=== PATIENT | male | born 1990 | race African-American/Black ===

== ENCOUNTER 2017-06-30 18:48 | Emergency (ER) | payer SELFPAY ==
--- NOTE | 2017-06-30 23:29 | ULT ---
EXAM: TESTICULAR ULTRASOUND 06/30/17 HISTORY: Right testicular pain. COMPARISON: None. TECHNIQUE: Garcia scale, color flow, doppler imaging with spectral waveform analysis is performed of the left and right testicle. FINDINGS: RIGHT HEMISCROTUM: The right testicle has a homogeneous echotexture. No intratesticular mass. Right testicle measures 2 .1 x 3.6 x 1.8 cm. Right epididymis is not appreciated. No fluid in the right hemiscrotum. LEFT HEMISCROTUM: Left testicle has a homogeneous echotexture. No intratesticular mass. Left testicle measures 1.6 x 3 .4 x 1.6 cm. Left epididymis is poorly defined. There is no significant fluid in the left hemiscrotu m. There are tubular structures with increased vascular flow upon Valsalva due to varicoceles. TESTICULAR DOPPLER: There is symmetric flow to the left and right testicle. IMPRESSION: 1. Nonvisualization of either epididymis. 2. Symmetric echogenicity and vascular flow to the testicles. 3. Left sided varicoceles. POS: [facility]
== END 2017-06-30 21:50 | disposition home or self-care (01) ==
LOC: ERS 18:48
DX: K42.9 Umbilical hernia without obstruction or gangrene (principal); F17.210 Nicotine dependence, cigarettes, uncomplicated
CPT/HCPCS: 76870; 93976

== ENCOUNTER 2017-11-28 17:55 | Emergency (ER) | payer SELFPAY, OTHER ==
[2017-11-28 18:40] LABS: #Basophils 0.1 thou/uL (0.0-0.2); #Monocytes 0.6 thou/uL (0.11-0.59); #Neutrophils 4.9 thou/uL (1.40-6.50); %Basophils 0.7 % (0.0-1.0); %Eosinophils 0.6 % (0.0-10.0); %Lymphocytes 26.7 % (21.0-51.0); %Monocytes 7.5 % (0.0-10.0); %Neutrophils 64.5 % (42.0-75.0); Hemoglobin 15.4 g/dL (14.0-18.0); Mean Corpuscular HGB CONC 34.2 g/dL (32.0-36.0); Mean Corpuscular Hemoglobin 31.7 pg (27.0-31.0); Mean Corpuscular Volume 92.6 fl (80.0-94.0); Mean Platelet Volume 7.1 fL (7.4-10.4); Platelet Count 264 thou/uL (130-400); RBC Distribution Width 11.8 % (11.5-14.5); Red Blood Cell (RBC) Count 4.86 mill/uL (4.70-6.10); White Blood Cell (WBC) Count 7.6 thou/uL (4.8-10.8)
[2017-11-28 18:44] LABS: Bilirubin Negative (Negative); Blood, Urine Negative (Negative); Clarity CLEAR (Clear); Glucose, Urine (Dipstick) Negative (Negative); Leukocyte Negative (Negative); Nitrite Negative (Negative); Protein, Urine (Dipstick) Negative (Neg-Trace); Specific Gravity, Urine 1.022 (1.002-1.036)
[2017-11-28 18:55] LABS: ALT (SGPT) 14 U/L (8-55); AST (SGOT) 18 U/L (5-34); Albumin 4.6 g/dL (3.5-5.0); Alkaline Phosphatase 67 U/L (40-150); Anion Gap 11 mmol/L (10-20); BUN (Urea Nitrogen) 10 mg/dL (8.9-20.6); Bilirubin, Total 0.4 mg/dL (0.2-1.2); Calc. Creatinine Clearance 0 mL/min (70-130); Calcium 9.4 mg/dL (7.8-10.44); Carbon Dioxide 26 mmol/L (22-29); Chloride 104 mmol/L (98-107); Estimated GFR-MDRD Greater than 90; Globulin 2.7 g/dL (2.4-3.5); Glucose 116 mg/dL (70-105); Lipase 27 U/L (8-78); Potassium 3.7 mmol/L (3.5-5.1); Protein, Total 7.3 g/dL (6.0-8.3); Sodium 137 mmol/L (136-145)
== END 2017-11-28 20:16 | disposition home or self-care (01) ==
LOC: ERS 17:55
DX: B36.0 Pityriasis versicolor (principal); F17.210 Nicotine dependence, cigarettes, uncomplicated
CPT/HCPCS: 36415; 80053; 81003; 83690; 85025; 99284

== ENCOUNTER 2018-03-13 20:53 | Emergency (ER) | payer SELFPAY | END 2018-03-13 22:39 | disposition home or self-care (01) | LOC: ERS 20:53 | DX: T67.5XXA Heat exhaustion, unspecified, initial encounter (principal); J45.909 Unspecified asthma, uncomplicated; F17.210 Nicotine dependence, cigarettes, uncomplicated; F12.10 Cannabis abuse, uncomplicated; X30.XXXA Exposure to excessive natural heat, initial encounter | CPT/HCPCS: 99284 ==

== ENCOUNTER 2018-05-22 21:04 | Emergency (ER) | payer SELFPAY ==
[2018-05-22 21:53] LABS: #Basophils 0.1 thou/uL (0.0-0.2); #Eosinphils 0.2 thou/uL (0.0-0.7); #Lymphocytes 3.3 thou/uL (1.20-3.40); #Monocytes 0.7 thou/uL (0.11-0.59); #Neutrophils 2.6 thou/uL (1.40-6.50); %Basophils 1.1 % (0.0-1.0); %Eosinophils 2.6 % (0.0-10.0); %Lymphocytes 48.5 % (21.0-51.0); %Monocytes 9.7 % (0.0-10.0); %Neutrophils 38.1 % (42.0-75.0); Hemoglobin 14.9 g/dL (14.0-18.0); Mean Corpuscular HGB CONC 34.5 g/dL (32.0-36.0); Mean Corpuscular Hemoglobin 32.2 pg (27.0-31.0); Mean Corpuscular Volume 93.4 fL (78.0-98.0); Mean Platelet Volume 6.8 fL (7.4-10.4); Platelet Count 240 thou/uL (130-400); RBC Distribution Width 11.8 % (11.5-14.5); Red Blood Cell (RBC) Count 4.64 mill/uL (4.70-6.10); White Blood Cell (WBC) Count 6.8 thou/uL (4.8-10.8)
[2018-05-22 22:17] LABS: ALT (SGPT) 19 U/L (8-55); AST (SGOT) 18 U/L (5-34); Albumin 3.7 g/dL (3.5-5.0); Alkaline Phosphatase 59 U/L (40-150); Anion Gap 11 mmol/L (10-20); BUN (Urea Nitrogen) 8 mg/dL (8.9-20.6); Bilirubin, Total 0.5 mg/dL (0.2-1.2); Calc. Creatinine Clearance 0 mL/min (70-130); Calcium 8.7 mg/dL (7.8-10.44); Carbon Dioxide 28 mmol/L (22-29); Chloride 106 mmol/L (98-107); Estimated GFR-MDRD Greater than 90; Globulin 2.1 g/dL (2.4-3.5); Glucose 92 mg/dL (70-105); Protein, Total 5.8 g/dL (6.0-8.3); Sodium 141 mmol/L (136-145)
[2018-05-22 22:18] LABS: Acetaminophen Less than 6.0 mcg/mL (10.0-30.0); Alcohol Less than 10 mg/dL (Less than 10); CK (CPK) 117 U/L (30-200); Salicylate Less than 8.0 mg/dL (15.0-30.0)
== END 2018-05-22 22:29 | disposition left against medical advice (07) ==
LOC: ERS 21:04
DX: R41.82 Altered mental status, unspecified (principal); F17.210 Nicotine dependence, cigarettes, uncomplicated
CPT/HCPCS: 36415; 80053; 80307; 82140; 82550; 85025; 94760

== ENCOUNTER 2018-06-17 00:44 | Emergency (ER) | payer SELFPAY | END 2018-06-17 01:30 | disposition home or self-care (01) | LOC: ERS 00:44 | DX: K02.9 Dental caries, unspecified (principal); F17.210 Nicotine dependence, cigarettes, uncomplicated; Z71.6 Tobacco abuse counseling | CPT/HCPCS: 99406 ==

== ENCOUNTER 2018-06-28 15:04 | Emergency (ER) | payer SELFPAY | END 2018-06-28 15:56 | disposition home or self-care (01) | LOC: ERS 15:04 | DX: K02.9 Dental caries, unspecified (principal); F17.210 Nicotine dependence, cigarettes, uncomplicated | CPT/HCPCS: 99282 ==

== ENCOUNTER 2020-08-04 14:25 | Emergency (ER) | payer SELFPAY | END 2020-08-04 15:12 | disposition home or self-care (01) | LOC: ERS 14:25 | DX: R09.89 Other specified symptoms and signs involving the circulatory and respiratory systems (principal); Z20.828 Contact with and (suspected) exposure to other viral communicable diseases; F17.210 Nicotine dependence, cigarettes, uncomplicated | CPT/HCPCS: 99283 ==

== ENCOUNTER 2020-11-20 08:42 | Emergency (ER) | payer SELFPAY | END 2020-11-20 09:31 | disposition home or self-care (01) | LOC: ERS 08:42 | DX: K04.7 Periapical abscess without sinus (principal); J45.909 Unspecified asthma, uncomplicated; F17.210 Nicotine dependence, cigarettes, uncomplicated | CPT/HCPCS: 99282 ==

== ENCOUNTER 2020-12-21 09:47 | Emergency (ER) | payer SELFPAY | END 2020-12-21 11:24 | disposition home or self-care (01) | LOC: ERS 09:47 | DX: K64.4 Residual hemorrhoidal skin tags (principal); F17.210 Nicotine dependence, cigarettes, uncomplicated | CPT/HCPCS: 99282 ==

== ENCOUNTER 2021-01-01 19:34 | Emergency (ER) | payer SELFPAY | END 2021-01-01 20:29 | disposition home or self-care (01) | LOC: ERS 19:34 | DX: R19.7 Diarrhea, unspecified (principal); F17.210 Nicotine dependence, cigarettes, uncomplicated | CPT/HCPCS: 99283 ==

== ENCOUNTER 2021-01-19 11:43 | Emergency (ER) | payer SELFPAY | END 2021-01-19 14:37 | disposition home or self-care (01) | LOC: ERS 11:43 | DX: A60.00 Herpesviral infection of urogenital system, unspecified (principal); J45.909 Unspecified asthma, uncomplicated; F17.210 Nicotine dependence, cigarettes, uncomplicated | CPT/HCPCS: 99282 ==

== ENCOUNTER 2021-09-20 17:09 | Emergency (ER) | payer SELFPAY ==
[2021-09-20 19:40] LABS: Bilirubin Negative (Negative); Blood, Urine Negative (Negative); Clarity Clear (Clear); Glucose, Urine (Dipstick) Normal (Negative); Ketone, Urine Negative (Negative); Leukocyte Negative Leu/uL (Negative); Nitrite Negative (Negative); Protein, Urine (Dipstick) Negative (Neg-Trace); Specific Gravity, Urine 1.023 (1.002-1.036); Urobilinogen Normal mg/dL (Less than 2)
[2021-09-20] MEDS ORDERED: Bicillin LA 2.4 MILL.UNITS/4 ML SYRINGE ONE (20:32)
[2021-09-21 11:25] LABS: Syphilis Antibody Nonreactive (Nonreactive); Syphilis Antibody Index 0.11 S/CO (<1.00 Non-Reactive)
[2021-09-21 21:42] LABS: Chlam.trachomatis by PCR,Urine DETECTED (NotDetected)
== END 2021-09-20 20:55 | disposition home or self-care (01) ==
LOC: ERS 17:09
DX: N48.89 Other specified disorders of penis (principal); F17.210 Nicotine dependence, cigarettes, uncomplicated; J45.909 Unspecified asthma, uncomplicated
CPT/HCPCS: 36416; 81003; 86780; 87491; 87591; 96372; 99283; J0561

== ENCOUNTER 2022-06-19 13:04 | Emergency (ER) | payer SELFPAY | END 2022-06-19 13:45 | disposition home or self-care (01) | LOC: ERS 13:04 | DX: K08.89 Other specified disorders of teeth and supporting structures (principal); F17.210 Nicotine dependence, cigarettes, uncomplicated | CPT/HCPCS: 99282 ==